=== PATIENT | male | born 1980 | race Caucasian/White ===

== ENCOUNTER 2021-06-28 10:34 | Emergency (ER) | payer OTHER ==
[~2021-06-28] VITALS: Ht 182.9 cm; Wt 124.1 kg
[2021-06-28] MEDS: GELATIN SPONGE SIZE 12-7MM SPONGE. TP ONE (11:00)
[2021-06-28] MEDS ORDERED: METF10007 PO (11:09)
[2021-06-28] MEDS ORDERED: ATOR20TA58 PO (11:09)
[2021-06-28] MEDS ORDERED: OMEP20CA16 PO (11:09)
[2021-06-28] MEDS ORDERED: CETI10TA74 PO (11:09)
[2021-06-28] MEDS ORDERED: DEXT30TA2 PO (11:09)
[2021-06-28] MEDS ORDERED: AMLO5TAB4 PO (11:09)
[2021-06-28] MEDS ORDERED: LISI-379 PO (11:09)
[2021-06-28] MEDS ORDERED: FLUO20CA16 PO (11:09)
--- NOTE | 2021-06-28 11:23 | PHYS DOC ---
Past Medical History Past Medical History: Hypertension General Adult EDM: Chief Complaint: NOSEBLEED HPI: HPI: 40 year old male presents for nosebleed. His nose started bleeding at a slow rate this morning at 3am. The bleeding stopped over the rest of the night but began again when he was getting ready for work this morning. Around 9 am, the bleeding became very rapid, prompting him to come into the ED. He had ENT surgery for a deviated septum and adenoids on June 16 and states that he has been following his post-op instructions very well, though he has been taking Aspirin for the past 3 days. He reports having a personal history of nosebleeds, but never as bad as the one he is currently having. Review of Systems: Review of Systems: Constitutional: Denies fever or chills Eyes: Denies redness or eye pain HENT: Reports nosebleed. Denies sore throat. Respiratory: Denies cough or shortness of breath Cardiovascular: Denies chest pain or palpitations GI: Denies abdominal pain, nausea, or vomiting : Denies dysuria or hematuria Musculoskeletal: Denies back pain or joint pain Integument: Denies rash or skin lesions Neurologic: Denies headache, focal weakness or sensory changes Complete systems were reviewed and found to be within normal limits, except as documented in this note. Heart Score: C/O Chest Pain: N/A Current Medications: Current Medications Medications (Trade) Dose Ordered Sig/James Start Time Stop Time Status Last Admin Dose Admin Gelatin (Gelfoam Size 12-7mm) 1 each 1X ONCE 06/28/21 11:00 06/28/21 11:01 DC Thrombin 20,000 unit 1X ONCE 06/28/21 11:15 06/28/21 11:16 UNV Allergies: Allergies: Allergies Coded Allergies Type Severity Reaction Last Updated Verified oxycodone Adverse Reaction Unknown Nausea 06/28/21 Yes tramadol Adverse Reaction Unknown Nausea 06/28/21 Yes Physical Exam: PE: Constitutional: Well developed, well nourished, no acute distress, non-toxic appearance HENT: Normocephalic, atraumatic. Active bleeding from bilateral nostrils with clamp in place. Blood dripping down into posterior pharynx. Eyes: Conjunctiva normal, no discharge Neck: Normal range of motion, no tenderness, supple Lungs & Thorax: No respiratory distress, equal chest rise and fall. Lungs clear to auscultation bilaterally. Cardiovascular: Regular rate and rhythm with no murmurs appreciated. Radial pulses 2/4 bilaterally. Skin: Warm, dry, no erythema, no rash Back: No tenderness Extremities: No tenderness, no edema Neurologic: Alert and oriented X 3, normal motor function, normal sensory function, no focal deficits noted Psychologic: Affect normal, judgment normal EKG: EKG: [] Radiology/Procedures: Radiology/Procedures: [] Course & Med Decision Making: Course & Med Decision Making Pertinent Labs and Imaging studies reviewed. (See chart for details) 40 year old male presented for severe nosebleed that began this morning. To reduce his active bleeding, oxymetazoline spray was administered into both nostrils and a clamp was put in place. He continued to have significant bleeding and so thrombin spray was administered to both nostrils and the clamp was reapplied. After a short time his bleeding stopped. He was instructed to follow- up with ENT. Patient stable for discharge with outpatient follow-up with PCP. Discussed findings and plan with patient, who acknowledges understanding and agreement. [] Dragon Disclaimer: Dragon Disclaimer: This electronic medical record was generated, in whole or in part, using a voice recognition dictation system. Departure Departure Impression: Primary Impression: Epistaxis Disposition: HOME / SELF CARE / HOMELESS Condition: STABLE Referrals: JESSICA MACKEY MD Patient Instructions: Krishna, [id number] TOBIAS MATHIS DO Jun 28, 2021 11:23
[2021-06-28] MEDS ORDERED: THROMBIN TOPICAL 20,000 UNIT SPRAY.SYRN KIT TP ONE (11:30)
[2021-06-28 13:24] VITALS: BP 132/91
== END 2021-06-28 13:50 | disposition home or self-care (01) ==
LOC: ER 10:34
DX: R04.0 Epistaxis (principal); I10 Essential (primary) hypertension; Z88.5 Allergy status to narcotic agent; Z88.6 Allergy status to analgesic agent
CPT/HCPCS: 99283